=== PATIENT | female | born 1955 | race Asian ===

== ENCOUNTER 2018-02-21 10:11 | Outpatient (CLI) | payer OTHER ==
[~2018-02-21 10:11] MED LIST: ALPR0.2566 PO; CELEBREX200 MG PO; CLEM2.687 PO; FURO20TA67 PO; LANTUS100 MG/ML SC; LORTAB1 TAB PO; MONT10TA PO; RANI150T78 PO; SITA50TA2 PO; Z-PAK PO; ZESTRIL40 MG OR
== END 2018-02-21 23:24 | disposition home or self-care (01) ==
LOC: US 10:11
DX: R94.5 Abnormal results of liver function studies (principal)

== ENCOUNTER 2018-05-07 11:10 | Outpatient (CLI) | payer OTHER | END 2018-05-07 23:30 | disposition home or self-care (01) | LOC: RAD 11:10 | DX: M05.79 Rheumatoid arthritis with rheumatoid factor of multiple sites without organ or systems involvement (principal) ==

== ENCOUNTER 2018-08-22 08:18 | Outpatient (CLI) | payer OTHER ==
[2018-08-22 08:43] LABS: PLATELET COUNT 167 K/uL (152-353)
== END 2018-08-22 22:06 | disposition home or self-care (01) ==
LOC: LABW 08:18
DX: M05.79 Rheumatoid arthritis with rheumatoid factor of multiple sites without organ or systems involvement (principal); M35.3 Polymyalgia rheumatica; R53.83 Other fatigue
CPT/HCPCS: 36415; 85027

== ENCOUNTER 2019-04-30 10:55 | Outpatient (CLI) | payer OTHER | END 2019-04-30 23:09 | disposition home or self-care (01) | LOC: LABW 10:55 | DX: R10.13 Epigastric pain (principal); M05.89 Other rheumatoid arthritis with rheumatoid factor of multiple sites; M10.09 Idiopathic gout, multiple sites; M35.3 Polymyalgia rheumatica; M79.7 Fibromyalgia; Z79.52 Long term (current) use of systemic steroids | CPT/HCPCS: 36415; 84450; 84460 ==

== ENCOUNTER 2019-05-10 10:46 | Outpatient (CLI) | payer OTHER | END 2019-05-10 22:25 | disposition home or self-care (01) | LOC: RAD 10:46 | DX: M05.89 Other rheumatoid arthritis with rheumatoid factor of multiple sites (principal) ==

== ENCOUNTER 2019-06-17 08:05 | Outpatient (CLI) | payer OTHER | END 2019-06-17 19:24 | disposition home or self-care (01) | LOC: RAD 08:05 | DX: M85.89 Other specified disorders of bone density and structure, multiple sites (principal); M05.79 Rheumatoid arthritis with rheumatoid factor of multiple sites without organ or systems involvement ==

== ENCOUNTER 2020-07-14 10:32 | Outpatient (CLI) | payer OTHER | END 2020-07-14 22:26 | disposition home or self-care (01) | LOC: RAD 10:32 | PROVIDERS: ATTEND Nurse Practitioner Family | DX: M25.551 Pain in right hip (principal) ==

== ENCOUNTER 2020-10-07 11:44 | Outpatient (CLI) | payer OTHER | END 2020-10-07 19:39 | disposition home or self-care (01) | LOC: US 11:44 | PROVIDERS: ATTEND Podiatrist | DX: I73.9 Peripheral vascular disease, unspecified (principal); I87.2 Venous insufficiency (chronic) (peripheral) ==

== ENCOUNTER 2021-05-20 11:42 | Outpatient (CLI) | payer OTHER | END 2021-05-20 19:32 | disposition home or self-care (01) | LOC: RAD 11:42 | PROVIDERS: ATTEND Physician Assistant | DX: M79.652 Pain in left thigh (principal) ==

== ENCOUNTER 2021-07-28 09:09 | Outpatient (CLI) | payer OTHER | END 2021-07-28 20:11 | disposition home or self-care (01) | LOC: MRI 09:09 | PROVIDERS: ATTEND Physician Assistant | DX: M54.59 Other low back pain (principal) ==

== ENCOUNTER 2022-09-03 00:42 | Emergency (ER) | payer OTHER ==
[~2022-09-03] VITALS: Ht 157.5 cm; Wt 106.6 kg
[2022-09-03 00:42] VITALS: BP 155/87
[2022-09-03 01:32] VITALS: TEMP 99.2
== END 2022-09-03 02:54 | disposition home or self-care (01) ==
LOC: ED 00:42
DX: S61.432A Puncture wound without foreign body of left hand, initial encounter (principal); Y04.1XXA Assault by human bite, initial encounter; Y92.89 Other specified places as the place of occurrence of the external cause
CPT/HCPCS: 90471; 90715; 99282

== ENCOUNTER 2022-12-19 09:01 | Outpatient (CLI) | payer OTHER | END 2022-12-19 18:59 | disposition home or self-care (01) | LOC: RAD 09:01 | PROVIDERS: ATTEND Nurse Practitioner Family | DX: E55.9 Vitamin D deficiency, unspecified (principal); E56.8 Deficiency of other vitamins; M05.79 Rheumatoid arthritis with rheumatoid factor of multiple sites without organ or systems involvement; M85.89 Other specified disorders of bone density and structure, multiple sites; Z79.631 Long term (current) use of antimetabolite agent ==